=== PATIENT | female | born 2000 | race Caucasian/White ===

== ENCOUNTER 2019-03-02 16:54 | Emergency (ER) | payer MEDICAID, SELFPAY ==
[2019-03-02 17:00] VITALS: BP 104/55; PULSE 92; RESP 12; TEMP 37.1; O2SAT 95
--- NOTE | 2019-03-02 17:24 | ED.GENADUL_ITS ---
Discharge Plan Disposition Patient Disposition: HOME Condition: Fair Discharge Details Chief Complaint: Abd Prob Clinical Impression: Abdominal pain, Vaginal discharge Primary Care Provider: Unknown,Unknown ED Provider: Christine Hillman Home Meds and New Rx's Prescriptions: Continued metronidazole [Flagyl] 500 mg Tablet 500 mg PO BID RF: 0 pantoprazole 40 mg Tablet,Delayed Release (Dr/Ec) 40 mg PO DAILY RF: 0 polyethylene glycol 3350 [Miralax] 17 gram/dose Powder 17 g PO DAILY PRNRF: 0 Discharge Instructions Instructions: Abdominal Pain (ED) Additional Instructions: Encourage hydration. Please continue with the Protonix as prescribed. At this point, your exam is very reassuring. I do not see any acute surgical pathology. Please follow-up with your primary care as soon as possible for reevaluation. You may continue with Tylenol as needed for discomfort. You may try Mylanta to help with your abdominal pain as well. If you develop fever/chills, inability stay hydrated, increased pain or other new/worsening symptoms please seek care urgently once again. I will call you with any positive results from today's vaginal pathology screening Stand Alone Forms: Work Release Discharge Data Discharge Date/Time-TO BE ENTERED AT DEPARTURE: 03/02/19 20:31 Medical Decision Making Patient is a 18-year-old today for evaluation of 4 months of 10 out of 10 abdominal pain. She reports the pain is primarily epigastric. States she was seen by her primary care and was prescribed Flagyl. Patient has not been taking this as prescribed and is only taking this once daily. She also been taking Protonix, states that she has been taking this daily. Patient is no previous abdominal surgeries. Finished her last menses 5 days ago. She denies any fever/chills, nausea, vomiting, change in bowel or bladder habits. Pain is not consistent. Does not note that this is changed by oral intake. No change in appetite. On exam, patient appears in no acute distress. She does report being very anxious regarding this pain that she is been experiencing for the past 2 months. No pain is elicited with exam. No peritoneal findings. Patient is also endorsing some vaginal discharge which is new as of today. There was a delay in being able to perform vaginal exam secondary to room availability with stirrups at the bed. This is able to be performed, normal vaginal exam with no signs of vaginal discharge. We then discussed that this unusual discharge she noted in the toilet today may not have been from the vagina, patient had just noted some mucus in the toilet. Her urinalysis does not note any signs of infection with negative leukocyte esterase, negative nitrites. It was heavily contaminated. I did send swabs from the vaginal exam, vaginal pathology was negative. GC chlamydia testing pending. Patient is sexually active with one partner and in monogomous relationship, no hx of STI. Patient I discussed further testing and imaging. At this time, she has no evidence of a surgical abdomen, has had this pain chronically, has not been losing any weight, no change in appetite, no fevers, do not see need for emergent interventions at this time. I discussed this with the patient. She is typically describing the pain in epigastric region, advised that the Protonix would likely be of benefit. We also discussed other medications and home remedies that she may use to help with discomfort and symptomatic management. I did advise that she should follow-up with primary care within the next week for reevaluation. HPI General Mode of arrival: ambulatory . Date/Time Provider Initiated Documentation: 03/02/19 17:11 . Limitations to Documentation: no limitations . Information obtained by: patient and RN notes reviewed . History of Present Illness 18 year old F presents to the emergency department with the chief complaint of abdominal pain, described as severe and similar to prior episodes, with intensity rated at 10. Quality is described as stabbing, and is localized to the abdomen. Patient reports no radiation. Patient started experiencing this month(s) (4) and it has been constant. No relieving factors improve symptom(s), Eating worsens symptoms and Movement worsens symptoms . Patient notes loss of appetite; denies chest pain, cough, fever/chills, headaches, nausea/vomiting, rash and shortness of breath. Patient did receive the following treatments prior to arrival, other (protonix, flagyl) Related Data Home Medications Medication Instructions Recorded Confirmed metronidazole [Flagyl] 500 mg PO BID 03/02/19 03/02/19 pantoprazole 40 mg PO DAILY 03/02/19 03/02/19 polyethylene glycol 3350 [Miralax] 17 g PO DAILY PRN 03/02/19 03/02/19 Allergies Allergy/AdvReac Type Severity Reaction Status Date / Time No Known Allergies Allergy Unverified 03/02/19 17:04 General Stated Complaint: Abd Prob ALEKSANDRA: 4 Review of Systems Constitutional Reports as per HPI, Denies chills, Denies fatigue, Denies fever(s) and Denies headache(s) ENT Denies headache(s) Cardiovascular Reports as per HPI, Denies chest pain and Denies dyspnea Respiratory Reports as per HPI, Denies cough and Denies dyspnea Gastrointestinal Reports as per HPI Genitourinary Reports as per HPI, Denies abnormal menses, Denies hematuria, Denies urinary frequency, Denies genital pruritis, Denies genital lesions, Denies dyspareunia, Denies dysuria, Denies pelvic pain, Denies flank pain, Denies urinary urgency, Reports vaginal discharge (reports one episode today of vaginal discharge noted when urinating), Denies vaginal dryness, Denies vaginal odor and Denies vaginal pruritus Musculoskeletal Reports as per HPI and Denies back pain Integumentary/Breasts Reports as per HPI and Denies rash Neurologic Reports as per HPI and Denies headache(s) Endocrine Denies fatigue [facility] Social History Smoking/Tobacco Use Status: Never Alcohol Intake: never Drug use: Never Substance use type: does not use Do you feel safe at home: Yes Do you feel safe in your relationship?: Yes Exam Const General: cooperative, healthy appearing, comfortable, no acute distress and well developed Nutritional Appearance: average body habitus and well nourished Orientation: alert and awake HENMT Head: normal to inspection Mouth: moist mucous membranes Resp Effort & Inspection: normal respiratory effort, able to speak in complete sentences and no respiratory distress Auscultation: clear to auscultation bilaterally, no rales, no rhonchi and no wheezes Cardio Rate: regular rate Rhythm: regular rhythm Heart Sounds: S1 normal and S2 normal GI Inspection: normal to inspection, no edema, non-distended, no large pannus, no obesity, no visible herniation and no visible pulsation Palpation: soft, no hepatosplenomegaly, no aortic enlargement, not firm, no guarding, no hernias, no pulsatile masses, not rigid and nontender Percussion: normal to percussion Auscultation: normal bowel sounds Rectal Exam - female: visual inspection normal External Female Exam: external appearance normal and normal appearance of the urethra Speculum Exam - Vagina: normal appearance of the vagina, normal vaginal discharge, normal vaginal discharge, no cysts, not erythematous, no swelling and nontender Speculum Exam - Cervix: normal appearance of the cervix, normal vervical discharge and nontender Bimanual Exam- Vagina & Uterus: normal bimanual exam, normal vaginal palpation, No cervical tenderness, no cervical motion tenderness and nontender Bimanual Exam- Adnexa, other: normal adnexae, no adnexal masses and no tenderness Back/Spine/Pelvis Back: no CVA tenderness Skin General skin exam: no rashes or lesions noted Trauma: no lacerations or abrasions Neuro General: alert and awake Cognition: normal cognition Speech: speech normal Gait: normal gait Extrem General: normal to inspection, no pedal edema, no calf tenderness and normal gait Psych Appearance: grossly normal and well kempt Mental Status: mental status grossly normal Speech and Movement: speech and movement normal Course Vital Signs Temperature 37.1 C 03/02/19 17:00 Pulse 92 H 03/02/19 17:00 Respiratory Rate 12 03/02/19 17:00 Blood Pressure 104/55 L 03/02/19 17:00 Pulse Oximetry 95 03/02/19 17:00 Temperature 37.1 C 03/02/19 17:00 Temperature Source Temporal Artery Scan 03/02/19 17:00 Pulse 92 H 03/02/19 17:00 Respiratory Rate 12 03/02/19 17:00 Respiratory Effort Non-Labored 03/02/19 17:02 Blood Pressure 104/55 L 03/02/19 17:00 Blood Pressure Position Sitting 03/02/19 17:00 Pulse Oximetry 95 03/02/19 17:00 Oxygen Delivery Method Room Air 03/02/19 17:00 Oxygen Flow Rate 0 03/02/19 17:00 Pain Level 10 03/02/19 17:00
[2019-03-02 17:45] LABS: Bilirubin Negative (Negative); Blood Negative (Negative); Clarity Clear (Clear); Glucose Negative (Negative); Ketones 40 mg/dL (Negative); Leukocyte Esterase Negative (Negative); Nitrite Negative (Negative); Specific Gravity >= 1.030 (1.005-1.025); Urobilinogen 0.2 EU/dL (Up TO 0.2)
[2019-03-02 17:52] LABS: Epithelial Cells Many HPF (Negative); RBC Negative (0-2); WBC 0-2 HPF (0-5)
[2019-03-02 17:56] LABS: Bacteria Moderate HPF (Negative); Crystals Negative HPF (Negative)
[2019-03-02 17:57] LABS: C & S Indicated? No/Sq. Contamination; Mucus Heavy (Negative)
[2019-03-04 12:30] LABS: Chlamydia Result Negative; GC Result Negative; Specimen Description CERVIX
== END 2019-03-02 20:31 | disposition home or self-care (01) ==
PROVIDERS: Emergency Provider Physician Assistant
DX: R10.13 Epigastric pain (principal); N89.8 Other specified noninflammatory disorders of vagina
CPT/HCPCS: 87491; 87591; 99282; 81003; 81015; 87480; 87510; 87660

== ENCOUNTER 2025-06-08 15:37 | Outpatient (REF) | payer SELFPAY ==
[2025-06-08 17:00] LABS: Abs Immature Grans 0.02 10^3/uL (0.0-0.06); HCT 40.5 % (36.0-46.0); HGB 13.8 g/dL (11.2-15.7); Immature Grans % 0.2 %; MCH 30.9 pg (27.0-33.0); MCHC 34.1 % (32.0-36.0); MCV 91 fL (80-95); RBC 4.47 10^6/uL (3.93-5.22); RDW 12.0 % (11.7-14.6); RDW-SD 39.5 fL; WBC 8.29 10^3/uL (4.4-10.8)
[2025-06-08 17:19] LABS: Platelet Count 167 10^3/uL (130-400)
[2025-06-08 17:20] LABS: RBC Morphology Normal
== END 2025-06-08 15:38 | disposition home or self-care (01) ==
LOC: LBN 15:37
PROVIDERS: Visit Provider Physician Assistant
DX: I88.9 Nonspecific lymphadenitis, unspecified (principal)
CPT/HCPCS: 85025